=== PATIENT | female | born 2000 | race Caucasian/White ===

== ENCOUNTER 2023-06-18 21:24 | Emergency (ER) | payer MEDICAID, SELFPAY ==
--- NOTE | ~2023-06-18 | XR_ITS ---
EXAMINATION: XR CHEST CLINICAL INFORMATION: Dyspnea. COMPARISON: None available. TECHNIQUE: 2 views of the chest were obtained. FINDINGS: No significant abnormality is noted involving the heart, lungs, mediastinum, bony thorax or soft tissues. XR/XR chest 2V IMPRESSION: Unremarkable examination.
[2023-06-18 22:11] VITALS: BP 125/76; PULSE 101; RESP 20; TEMP 36.6; O2SAT 96; BMI 39.9
[2023-06-18 23:14] VITALS: BP 127/53; PULSE 93; RESP 16; TEMP 36.4; O2SAT 98
--- NOTE | 2023-06-18 23:19 | MHC.EDTECH ---
This pct just assumed care of pt ,vitals taken rsv /covid swab collected and sent to lab .
[2023-06-18] MEDS: predniSONE 20 MG TABLET 60 MG PO (23:27)
[2023-06-18] MEDS: Albuterol Sulfate 2.5 MG, Albuterol/Iprat 2.5/0.5MG 3 ML 3 ML INHALE (23:44)
[2023-06-18 23:46] VITALS: PULSE 96; RESP 16; O2SAT 95
--- NOTE | 2023-06-18 23:52 | ED.ASTHMA ---
HPI - Asthma General Chief Complaint: Asthma Stated Complaint: difficultybreathing Time Seen by Provider: 06/18/23 23:01 Source: patient Mode of arrival: ambulatory Limitations: no limitations History of Present Illness HPI Narrative: Patient is a 23-year-old female who presents emergency department expressing concerns of asthma exacerbation. She reports that the past few days she has been experiencing shortness of breath particularly on exertion, nonproductive cough, pain diffusely across the mid back that is only experienced during episodes of coughing, and wheezing. She has a history of asthma, she is supposed to be taking Symbicort daily, she has not been taking this for the past week as she ran out. She has trialed her albuterol inhaler without much improvement. She does have a nebulizer at home but has been unable to use as she is visiting family for the holiday. She denies any history of intubation in the past secondary to her asthma. She denies fevers, chills, headache, neck pain, chest pain, nausea, vomiting, abdominal pain, numbness or tingling of the extremities. She denies any known sick contacts. Related Data Previous Rx's Medication Instructions Recorded prednisone 20 mg tablet 40 mg (2 x 20 mg) PO DAILY #8 tabs 06/19/23 Allergies Allergy/AdvReac Type Severity Reaction Status Date / Time No Known Allergies Allergy Verified 06/18/23 23:17 Review of Systems Review of Systems: Yes all other systems are reviewed and are negative [facility] Past Medical History Attestation statement: The following information was validated with the patient. Source: old records reviewed Social History Advance Directives: No Advance Directives Information Provided: No Physical Exam Vital Signs: Vital Signs: Last Vital Signs Temp 97.6 F 06/18/23 23:14 Pulse 96 06/18/23 23:46 Resp 16 06/18/23 23:46 BP 127/53 L 06/18/23 23:14 Pulse Ox 98 06/18/23 23:14 O2 Del Method Room Air 06/18/23 23:14 BMI result Body Mass Index 39.9 Appearance: Alert.?Oriented to person, place and time. No acute distress.?Normal affect. Eyes: Pupils equal, round and reactive to light.? EOMI. No nystagmus. ENT: Pharynx normal.??TM normal bilaterally. Neck: Normal inspection.? Neck supple.??No cervical lymphadenopathy. CVS: Heart sounds normal. Normal heart rate and rhythm.? Pulses normal.?? Respiratory: No respiratory distress.? Lung sounds this story expiratory wheezing bilaterally Abdomen: Soft and non-tender. Normoactive bowel sounds. ? Skin: Skin warm and dry.? Normal skin color.? Extremities: No lower extremity edema.? No calf ttp? Neuro: Moves all extremities spontaneously. Sensation intact bilaterally. No focal neuro deficits. Ambulates with normal steady gait. Course Reevaluation(s) Reevaluation #1: Patient with significant improvement in breathing and wheezing after receiving albuterol 2.5 mg updraft and prednisone. At this time she is requesting discharge home which I think is appropriate. Chest x-ray is without acute cardiopulmonary process. Viral testing is negative. Will send prescription for prednisone to pharmacy. Discussed worrisome signs and symptoms that would warrant re-evaluation emergency department. All questions answered. Stable for discharge atrial follow-up outpatient a primary care provider when she returns home after tomorrow. Time: 00:31 Medications Administered Discontinued Medications Generic Name Dose Route Start Last Admin Trade Name Benjaq PRN Reason Stop Dose Admin Albuterol Sulfate 2.5 mg/ 0 mg 06/18/23 23:39 06/18/23 23:44 Albuterol/Ipratropium 3 ml INHALE 06/18/23 23:40 5 dose ONCE ONE Administration Prednisone 60 mg 06/18/23 23:18 06/18/23 23:27 Prednisone 20 Mg Tablet PO 06/18/23 23:19 60 mg ONCE ONE Administration Medical Decision Making Medical Decision Making MDM Narrative: Patient is a 23-year-old female who presents emergency department expressing concerns for asthma exacerbation with shortness of breath, back pain, and wheezing as per HPI. At the time my examination she appears overall well, she is in no respiratory distress. She speaking clear full sentences. She is without tachypnea or hypoxia and she is afebrile. She does have notable i inspiratory and expiratory wheezing upon auscultation. Orders placed for ED bronchodilator protocol, prednisone 60 mg orally, in addition to chest x-ray to exclude pneumonia though clinically I have a lower suspicion for this, and will obtain COVID-19/influenza/RSV testing. No risk factors for ACS. Wells score negative, unlikely PE Differential Diagnosis Differential Diagnoses: The differential diagnosis associated with the presentation includes (As noted above) Admission/Observation Consideration of admission/observation: Escalation of care including admission/observation considered (See narrative above in course narrative for further details) Lab Data Labs: Lab Results 06/18/23 Range/Units 23:19 Influenza Type A (PCR) NEGATIVE (Negative) Influenza Type B (PCR) NEGATIVE (Negative) RSV RNA Qual (PCR) NEGATIVE (Negative) SARS-CoV-2 RNA (RT-PCR) NEGATIVE (Negative) Independent Interpretation I performed an independent interpretation of an: Plain X-Ray (I personally interpreted chest x-ray and agree with radiologist impression.) Radiology Impression Discussion of test interpretation with radiology: I have reviewed the radiologist's reading. Radiologist Impression: XR/XR chest 2V IMPRESSION: Unremarkable examination. Independent Historian Clinical information obtained from an independent historian. History obtained from or confirmed by: Spouse (Present at bedside who confirms history) Prescription Management I considered prescription management with: Other (Prednisone) Discharge Plan Discharge Clinical Impression: Asthma with acute exacerbation Patient Disposition: Home, Self-Care Instructions: Asthma (ED) Additional Instructions: A prescription for prednisone was sent to [facility] on [address] in [place], [place] Prescriptions: New prednisone 20 mg tablet 40 mg PO DAILY Qty: 8 0RF
[2023-06-18 23:59] LABS: Influenza A PCR NEGATIVE (Negative); Influenza B PCR NEGATIVE (Negative); Resp Syncy Virus RNA Qual PCR NEGATIVE (Negative); SARS COV2 PCR INHOUSE NEGATIVE (Negative)
== END 2023-06-19 00:40 | disposition home or self-care (01) ==
PROVIDERS: Emergency Provider Emergency Medicine Emergency Medical Services
DX: J45.901 Unspecified asthma with (acute) exacerbation (principal); R06.02 Shortness of breath; Z20.822 Contact with and (suspected) exposure to COVID-19; Z20.828 Contact with and (suspected) exposure to other viral communicable diseases
CPT/HCPCS: 0241U; 71046; 94640; 99284